=== PATIENT | female | born 1955 | race Caucasian/White ===

== ENCOUNTER → 2017-08-25 | Outpatient (CLI) | payer BC ==
--- NOTE | 2017-08-25 17:51 | RAD ---
EXAM DESCRIPTION: Knee,Right Complete CLINICAL HISTORY: 62 years, Female, PAIN IN RT KNEE COMPARISON: None TECHNIQUE: 4 views of the right knee including standing views FINDINGS: No fracture or dislocation. Bones appear normally mineralized with normal trabecular pattern. Minimal spurring of the tibial spines. Normal appearance of medial and lateral compartments on frontal view. Lateral view shows normal position of the patella. No patellar spurring or enthesopathy. No suprapatellar knee joint effusion. Normal contour of quadriceps and patellar tendons. No abnormal patellar tilt or subluxation on patellar sunrise view. IMPRESSION: Negative for fracture or dislocation. Electronically signed by: Bolivar Adamson MD 08/25/2017 5:49 PM CDT
--- NOTE | 2017-08-25 17:53 | RAD ---
EXAM DESCRIPTION: Pelvis CLINICAL HISTORY: 62 years Female, PAIN COMPARISON: None. TECHNIQUE: Single AP x-ray view of hips and pelvis FINDINGS: Degenerative changes are seen in the lower L-spine with levoscoliotic curvature partly visualized. Sacrum appears intact. Surgical changes are seen in the pelvis. Severe degenerative narrowing of the right hip is seen with prominent inferomedial femoral head neck spurring. Spurring is seen at the inferior acetabulum. Enthesopathy is seen at the right proximal femoral greater trochanter. Bones of the pelvic ring appear intact. No fracture or dislocation. Proximal left femur appears intact. Left hip joint space appears better preserved. IMPRESSION: Advanced osteoarthrosis of the right hip. Electronically signed by: Bolivar Adamson MD 08/25/2017 5:51 PM CDT
--- NOTE | 2017-08-26 10:27 | MAM ---
EXAM DESCRIPTION: 3D Screening BILATERAL : Digital Mammography. CLINICAL HISTORY: 62 years Female SCREEN . No complaints. No family history of breast cancer. Postmenopausal. No HRT. COMPARISON: 2-D digital screening bilateral study 03/19/2015. No prior reports available. TECHNIQUE: Bilateral CC and MLO projection full-field images, 3-D tomosynthesis digital mammographic technique. Also bilateral synthesized CC/ MLO full-field images. CAD not utilized. FINDINGS: The breast parenchymal density pattern is: Heterogeneously dense breast tissue, which may obscure small masses. No skin thickening or nipple retraction bilateral small axillary lymph nodes. Bilateral solitary microcalcifications. Coarse calcifications in the right breast. No focal, stellate mass or density, focal asymmetry , and no suspicious microcalcifications bilaterally. Stable mammograms compared to prior study, taking into account differences in mammographic technique IMPRESSION: BI-RADS CATEGORY: 2 - BENIGN FINDINGS. FOLLOW UP: Routine digital bilateral screening, one year interval from July 2017. Written communication explaining the IMPRESSION and follow-up, will be mailed to the patient and referring health care provider. According to the [employer], yearly mammograms are recommended starting at age 40 and continuing as long as a woman is in good health. Any breast change noted on a breast self-exam should be reported promptly to the patient's healthcare provider. Breast MRI is recommended for women with an approximately 20-25% or greater lifetime risk of breast cancer, including women with a strong family history of breast or ovarian cancer and women who have been treated for Hodgkin's disease. A negative mammographic report should not delay tissue diagnosis in patients with significant clinical history or physical findings. Extremely dense breast tissue limits the sensitivity of digital mammography. Electronically signed by: Tomy Soto MD 08/26/2017 10:24 AM CDT
== END ==
LOC: RAD 08:00
PROVIDERS: ATTEND Orthopaedic Surgery
DX: Z12.31 Encounter for screening mammogram for malignant neoplasm of breast (principal); M16.11 Unilateral primary osteoarthritis, right hip; M25.551 Pain in right hip; M25.561 Pain in right knee

== ENCOUNTER → 2019-10-02 | Outpatient (CLI) | payer MEDICARE, OTHER ==
--- NOTE | 2019-10-03 20:34 | MAM ---
EXAM DESCRIPTION: 3D Screening BILATERAL : Digital Mammography. CLINICAL HISTORY: 64 years Female SCREENING . No complaints. No personal or family history of breast cancer. Menarche age 11. Childbirth age 26. Menopause age unknown. HRT 5 or more years ago.. Lifetime risk of developing breast cancer (Tyrer-Cuzick model)(%): 6.9. COMPARISON: Bilateral screening digital breast tomosynthesis July 2017. 2-D digital screening bilateral mammography February 2015. TECHNIQUE: Bilateral CC and MLO projection full-field images, digital tomosynthesis mammographic technique. Bilateral digital 2-D full-field MLO images. CAD available for 2-D images. FINDINGS: The breast parenchymal density pattern is: Heterogeneously dense breast tissue, which may obscure small masses. No skin thickening or nipple retraction. Birads 2 Findings. No new focal, stellate mass or density, focal asymmetry , and no suspicious microcalcifications bilaterally. Stable mammograms compared to prior study. IMPRESSION: No suspicious or significant imaging findings. BI-RADS CATEGORY: 1 - NEGATIVE RECOMMENDATIONS: FOLLOW UP: Routine digital bilateral screening, one year interval from September 2019. Written communication explaining the findings and follow-up, will be mailed to the patient and referring health care provider. The FINDINGS and the FOLLOW-UP plan were reviewed in person with the patient after the examination. According to the [employer], yearly mammograms are recommended starting at age 40 and continuing as long as a woman is in good health. Any breast change noted on a breast self-exam should be reported promptly to the patient's healthcare provider. Breast MRI is recommended for women with an approximately 20-25% or greater lifetime risk of breast cancer, including women with a strong family history of breast or ovarian cancer and women who have been treated for Hodgkin's disease. A negative mammographic report should not delay tissue diagnosis in patients with significant clinical history or physical findings. Extremely dense breast tissue limits the sensitivity of digital mammography. Electronically signed by: Tomy Soto MD 10/03/2019 8:32 PM CDT
== END ==
LOC: MAMMO 13:00
PROVIDERS: ATTEND Family Medicine
DX: Z12.31 Encounter for screening mammogram for malignant neoplasm of breast (principal)

== ENCOUNTER 2020-06-13 19:29 | Emergency (ER) | payer MEDICARE, OTHER ==
[2020-06-13] MEDS ORDERED: FLUORESCEIN SODIUM OPHTH STRIP ONE (19:35)
[2020-06-13] MEDS ORDERED: TETRACAINE HCL 0.5% OPHTH SOL 1 DROP ONE (19:38)
[2020-06-13] MEDS ORDERED: ERYTHROMYCIN OPHTH OINT 1 APPLIC RIGHT_EYE ONE (20:15)
[2020-06-13] MEDS ORDERED: traMADol HCL 50 MG TAB PO ONE (20:40)
--- NOTE | 2020-06-13 20:40 | ED.PDOC ---
History of Present Illness - General Chief Complaint: Eye Problems Stated Complaint: Right eye pain Time Seen by Provider: 06/13/20 19:31 Source: patient Exam Limitations: no limitations - History of Present Illness Initial Comments: The patient is a 65-year-old female presented emergency room secondary to severe right eye pain and progressive vision loss starting it 12:00 in the middle of the night last night. She reports that it started feeling like something was in her eye. She did not immediately notice vision changes however when she woke up later her vision was blurry and has gotten progressively worse and more painful throughout the day. Upon exam extraocular movements are intact. This is literally the driest eye I have ever seen on a live patient. There is some obvious corneal blistering and what appears to be some early opacification. There is markedly diminished red reflex and I cannot tell any detail of the eye posteriorly. Pupil is still reactive both with light directed at the eye itself and with light directed at the left eye. There is pain to palpation. There is pain with all movements of the eye. no trauma. No history of any infection in the eye. The patient was diagnosed with coronavirus around a week ago and had URI symptoms for a couple of days before that. She is currently largely asymptomatic from the coronavirus. She did receive a steroid shot from her primary care doctor upon diagnosis. Both her and her tested positive apparently. 2 measurements of intraocular pressure measured 11 and 13 on our Roderick-Pen. Vision according to her, was perfectly normal yesterday. The patient reports being very healthy prior. No daily medications. She is always had a little bit of dry eye bilaterally but she has attributed that to allergies and medications for allergies. Timing/Duration: other - 20 hours Severity: severe Improving Factors: rest Worsening Factors: movement Associated Symptoms: denies symptoms Allergies/Adverse Reactions: Allergies NO KNOWN ALLERGY Allergy (Verified 06/13/20 19:52) Review of Systems - Review of Systems Constitutional: States: no symptoms reported EENTM: States: see HPI, eye pain, blurred vision Respiratory: States: no symptoms reported Cardiology: States: no symptoms reported Gastrointestinal/Abdominal: States: no symptoms reported Genitourinary: States: no symptoms reported Musculoskeletal: States: no symptoms reported Skin: States: no symptoms reported Neurological: States: no symptoms reported Endocrine: States: no symptoms reported All other Systems: No Change from Baseline Past Medical History (General) - Patient Medical History Hx Seizures: No Hx Stroke: No Hx Dementia: No Hx Asthma: No Hx of COPD: No Hx Cardiac Disorders: No Hx Congestive Heart Failure: No Hx Pacemaker: No Hx Hypertension: Yes Hx Thyroid Disease: No Hx Diabetes: No Hx Gastroesophageal Reflux: No Hx Renal Disease: No Hx Cancer: No Hx of HIV: No Hx Hepatitis C: No Hx MRSA: No Surgical History: Hysterectomy - Vaccination History Hx Tetanus, Diphtheria Vaccination: No Hx Influenza Vaccination: No Hx Pneumococcal Vaccination: Yes - Social History Hx Tobacco Use: No Hx Chewing Tobacco Use: No Hx Alcohol Use: Yes Hx Substance Use: No Hx Substance Use Treatment: No Hx Depression: No Feels Threatened In Home Enviroment: No Feels Threatened In a Relationship: No Hx Physical Abuse: No Hx Emotional Abuse: No Hx Suspected Abuse: No - Female History Patient is a Female of Child Bearing Age (10 -59 yrs old): No Patient : No - Triage Comment ED Triage Comment: The patient walked into the ER and plaed in bed one. She was alert and oriented times 4 and was keeping her right eye closed. She advised that her eye was in constent pain and she could not keep it open. She advised that any light made it hurt even worse. She had no other noted complaints and was COVID positive. She denied any trauma and had no other noted complaints during the assessment. Family Medical History - Family History Mother Family History: No Known Physical Exam - Physical Exam General Appearance: Alert, Anxious Eye Exam: right abnormal EOM - See history of present illness, left normal Ears, Nose, Throat: normal pharynx Neck: full range of motion, supple Respiratory: no respiratory distress, no accessory muscle use Cardiovascular/Chest: normal peripheral pulses, no edema, other - Regular rate Peripheral Pulses: radial,right: 2+, radial,left: 2+ Rectal Exam: deferred Extremity: no pedal edema, normal capillary refill Neurologic: primary education professor II-XII nml as tested - See history of present illness, alert, normal mood/affect, oriented x 3 Skin Exam: normal color Comments: Vital Signs - 24 hr 06/13/20 19:40 Temperature 97.7 F Pulse Rate [ 88 Pulse Ox] Respiratory 16 Rate Blood Pressure 164/80 [Left Arm] O2 Sat by Pulse 99 Oximetry Progress - Progress Progress: 06/13/20 20:44 The patient is a 65-year-old female presented emergency room secondary to abrupt onset eye pain that is gotten progressively worse throughout the day along with progressive loss of vision. The patient has a severely dry eye with a grossly abnormal cornea and decreased red reflex. The patient is being transferred to [facility] for further evaluation. The patient has the image of the fluorescein exam with her digitally. Erythromycin ointment is being used both for antibiotic purposes but also as a lubricant for the severely dry eye. The patient is going to be sent for further evaluation tonight. Acceptance is appreciated. alena dash [id number] Departure - Departure Clinical Impression: Acute loss of vision Qualifiers: Laterality: right Qualified Code(s): H53.131 - Sudden visual loss, right eye Pain in eye Qualifiers: Laterality: right Qualified Code(s): H57.11 - Ocular pain, right eye Disposition: Transfer to Hospital Departure Forms: ED Discharge - Pt. Copy, Patient Portal Self Enrollment Referrals: JAYCE YEAEGR MD [Primary Care Provider] - 1-2 Weeks Transfer to Outside Facility - Transfer Information Decision to Transfer Date: 06/13/20 Decision to Transfer Time: 20:46 Reason for Transfer: required specialist not available Accepting Provider:: dr leiva Accepting Facility: [facility]
[2020-06-13 21:12] VITALS: BP 128/79; TEMP 98.9; O2SAT 97
== END 2020-06-13 21:12 | disposition short-term general hospital (02) ==
LOC: ER 19:29
DX: H57.11 Ocular pain, right eye (principal); H53.131 Sudden visual loss, right eye; S05.8X1A Other injuries of right eye and orbit, initial encounter; H04.121 Dry eye syndrome of right lacrimal gland; U07.1 COVID-19; I10 Essential (primary) hypertension; X58.XXXA Exposure to other specified factors, initial encounter; Y92.9 Unspecified place or not applicable